=== PATIENT | male | born 1995 | race Two or more races ===

== ENCOUNTER 2017-01-07 14:17 | Emergency (ER) | payer SELFPAY ==
[2017-01-07 14:38] VITALS: BP 109/65
--- NOTE | 2017-01-07 16:08 | EDM.PDOC ---
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 Onset Date: 01/06/17 Onset Time: 19:00 Location: Reports: Face Quality: Reports: Ache Severity: Moderate Left Eye Pain Score (Numeric/FACES): 7 - Related Data Allergies Allergy/AdvReac Type Severity Reaction Status Date / Time No Known Allergies Allergy Verified 01/07/17 14:35 Home Meds: Home Meds . [No Known Home Meds] 01/07/17 [History] Past Medical History - Past Health History Medical/Surgical History: Denies Medical/Surgical History Social & Family History - Family History Family Medical History: Noncontributory - Tobacco Use Smoking Status *Q: Never Smoker - Caffeine Use Caffeine Use: Reports: None - Recreational Drug Use Recreational Drug Use: No ED ROS GENERAL - Review of Systems Review Of Systems: See Below HEENT: Reports: Eye Pain ED EXAM GENERAL W FULL EYE - Physical Exam Exam: See Below Exam Limited By: No Limitations General Appearance: Alert, WD/WN, No Apparent Distress Eye Exam: Left Eye: Foreign Body (Small yellow hard substance, possibly fiberglass), Bilateral Eye: EOMI, Normal Fundi, Normal Inspection, PERRL Eyelids: Bilateral: Normal Appearance Conjunctiva & Sclera: Left: Foreign Body Cornea Exam: Bilateral: Normal Appearance Extraocular Movements: Bilateral: Intact Pupils: Normal Accommodation Pupillary Size: Bilateral: 4 mm Pupillary Reaction: Bilateral: Brisk Anterior Chamber: Bilateral: Normal Appearance ED EYE w/ Add Procedure - Eye Procedure Alcaine Drops Administered: No Eye FB Removal: Other (Gloved finger as FB at lower lid margin) Course - Vital Signs Last Recorded V/S: Last Vital Signs Temp 97.4 F 01/07/17 14:35 Pulse 92 01/07/17 14:35 Resp 16 01/07/17 14:35 BP 109/65 01/07/17 14:35 Pulse Ox 100 01/07/17 14:35 Departure - Departure Time of Disposition: 16:06 Disposition: Home, Self-Care 01 Condition: Good Clinical Impression: Acute foreign body of conjunctiva Qualifiers: Encounter type: initial encounter Laterality: left Qualified Code(s): T15.12XA - Foreign body in conjunctival sac, left eye, initial encounter - Discharge Information Forms: ED Department Discharge Additional Instructions: Place the antibiotic ointment to eye four times a day for 3 days. Keep eye clean and clear of debris. Wear protection glasses when welding. Return for any worsening symptoms or blurred vision.
== END 2017-01-07 16:11 | disposition home or self-care (01) ==
LOC: DL.ED 14:17
DX: T15.12XA Foreign body in conjunctival sac, left eye, initial encounter (principal)
CPT/HCPCS: 99283